=== PATIENT | male | born 1985 | race Caucasian/White ===

== ENCOUNTER 2019-03-05 10:03 | Inpatient (IN) | payer SELFPAY ==
[~2019-03-05] VITALS: Ht 170.2 cm; Wt 82.6 kg
[2019-03-05] VITALS (9 sets, daily range): BP systolic 112–139; BP diastolic 73–100
[~2019-03-05 10:03] MED LIST: CEPH500C PO; HYDR-3720 PO
[2019-03-05 10:28] LABS: BASOPHILS % (AUTO) 0 % (0-10); EOSINOPHILS % (AUTO) 0 % (0-10); HEMATOCRIT 46 % (40-54); HEMOGLOBIN 16.9 G/DL (13.3-17.7); LYMPHOCYTES # (AUTO) 1.6 X 10^3 (1.0-4.0); LYMPHOCYTES % (AUTO) 16 % (12-44); MEAN CORPUSCULAR HEMOGLOBIN 33 PG (25-34); MEAN CORPUSCULAR HGB CONC 37 G/DL (32-36); MEAN CORPUSCULAR VOLUME 90 FL (80-99); MEAN PLATELET VOLUME 10.5 FL (7.4-10.4); MONOCYTES % (AUTO) 21 % (0-12); NEUTROPHILS # (AUTO) 6.2 X 10^3 (1.8-7.8); NEUTROPHILS % (AUTO) 63 % (42-75); PLATELET COUNT 256 10^3/uL (130-400); RED CELL DISTRIBUTION WIDTH 12.5 % (10.0-14.5); WHITE BLOOD COUNT 9.9 10^3/uL (4.3-11.0)
[2019-03-05 10:40] LABS: ALANINE AMINOTRANSFERASE 37 U/L (0-55); ALBUMIN 4.6 GM/DL (3.2-4.5); ALKALINE PHOSPHATASE 74 U/L (40-136); BILIRUBIN,TOTAL 0.6 MG/DL (0.1-1.0); BUN/CREATININE RATIO 11; CALCIUM 9.7 MG/DL (8.5-10.1); CARBON DIOXIDE 23 MMOL/L (21-32); CHLORIDE 104 MMOL/L (98-107); CREATININE SERUM 1.12 MG/DL (0.60-1.30); GFR ESTIMATED > 60; GLUCOSE 111 MG/DL (70-105); POTASSIUM 3.7 MMOL/L (3.6-5.0); SODIUM 136 MMOL/L (135-145); TOTAL PROTEIN 7.7 GM/DL (6.4-8.2)
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
[2019-03-05] MEDS ORDERED: CYCLOBENZAPRINE 10 MG (FLEXERIL) TAB PO SCH (11:00)
[2019-03-05] MEDS ORDERED: KETOROLAC 30 MG/ML VIAL IVP ONE (11:00)
--- NOTE | 2019-03-05 11:09 | Diagnostic Imaging Report ---
INDICATION: Chest pain radiating down both upper extremities. Comparison made with prior examination 09/24/2010. FINDINGS: The heart size, mediastinal configuration, and pulmonary vascularity are within normal limits. There is no pleural effusion, pneumothorax, or pneumonia. The osseous structures are unremarkable. IMPRESSION: No acute cardiopulmonary abnormality. Dictated by: Dictated on workstation # [id number]
--- NOTE | 2019-03-05 12:00 | NUR ---
pt arrives from ed via wheel chair with ed staff. pt placed in room 2 and iv fluids at 125ml/hr started to left ac 20 gauge. pt denies chest pain at this time. vs obtained and pt introduced to room and call light. lung sounds are clear and dc. pt is a pack a day smoker and occasionally smokes pot.
[2019-03-05] MEDS ORDERED: NS IV 1000 ML 1,000 ML ONE ×2 (12:17→17:02)
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
[2019-03-05] MEDS ORDERED: ASPIRIN 325 MG (5 GR) TABLET ONE (12:28)
[2019-03-05] MEDS ORDERED: ASPIRIN 325 MG (5 GR) TABLET PO NR (12:30)
[2019-03-05] MEDS ORDERED: NS IV 1000 ML 1,000 ML IV SCH (12:30)
[2019-03-05] MEDS ORDERED: morphine INJ 10 MG/ML 1ML (SYR OR VIAL) IV PRN (12:30)
[2019-03-05] MEDS ORDERED: CATHETER FLUSH 10 ML SYR IV PRN (12:30)
[2019-03-05] MEDS ORDERED: ONDANSETRON 4 MG/2 ML (SDV) Z0FRAN IV PRN (12:30)
--- NOTE | 2019-03-05 14:01 | History & Physical-Hospitalist ---
History of Present Illness HPI/Chief Complaint CC: Chest pain with elevated troponin HPI: This is a 34yoWM with no PMH who presented to the ER with chest pain. Patient was at work and noted the chest pain that began to worsen so he reported to the ER and found to have elevated troponin with possible pericarditis. Patient was placed in ICU and monitored closely. Patient is much improved since pain med was given in ER. Patient does smoke 1ppd and drinks 2 drinks of ETOH a day. Cardiac cath will be entertained depending on what Dr Gudino thinks should be done. Source: patient, RN/MD Exam Limitations: no limitations Date Seen 03/05/19 Time Seen by a Provider: 13:40 Attending Physician Belinda Perla DO PCP No,Local Physician Referring Physician Date of Admission Mar 05, 2019 at 11:26 Home Medications & Allergies Home Medications Reviewed patient Home Medication Reconciliation performed by pharmacy medication reconciliations finishing lab technician and/or nursing. Patients Allergies have been reviewed. Allergies Allergies Coded Allergies No Known Drug Allergies (Verified03/21/08) Past Ydygdxk-Uocxay-Ubjxdq Hx Past Med/Social Hx: Reviewed Nursing Past Med/Soc Hx, Reviewed and Corrections made Patient Social History Marrital Status: single Employed/Student: employed (service tech/welder) Alcohol Use: Occasionally Uses Recreational Drug Use: Yes Drug of Choice: MARIJUANA Smoking Status: Current Everyday Smoker Type Used: Cigarettes Recent Foreign Travel: No Contact w/other who traveled: No Recent Infectious Disease Expo: No Immunizations Up To Date Tetanus Booster (TDap): Unknown Pediatric: Yes Past Medical History Reproductive: No History of Blood Disorders: No Family History No Pertinent Family Hx Review of Systems Constitutional: see HPI EENTM: no symptoms reported Respiratory: no symptoms reported Cardiovascular: chest pain Gastrointestinal: no symptoms reported Genitourinary: no symptoms reported Musculoskeletal: no symptoms reported Skin: no symptoms reported Psychiatric/Neurological: No Symptoms Reported All Other Systems Reviewed Negative Unless Noted: Yes Physical Exam Physical Exam Vital Signs Vital Signs - First Documented 03/05/19 10:04 Temp 96.4 Pulse 95 Resp 20 B/P (MAP) 157/114 (128) Pulse Ox 99 O2 Delivery Room Air Capillary Refill : Less Than 3 Seconds Height, Weight, BMI Height: 5'7.00" Weight: 185lbs. 0.0oz. 83.209893si; 29.0 BMI Method:Stated General Appearance: No Apparent Distress, WD/WN Eyes: Right Eye Normal Inspection, Right Eye PERRL HEENT: PERRL/EOMI, TMs Normal, Normal ENT Inspection, Pharynx Normal, Moist Mucous Membranes Neck: Full Range of Motion, Normal Inspection, Non Tender Respiratory: Chest Non Tender, Lungs Clear, Normal Breath Sounds, No Accessory Muscle Use, No Respiratory Distress Cardiovascular: Regular Rate, Rhythm, No Edema, No Gallop, No JVD, No Murmur, Normal Peripheral Pulses Gastrointestinal: Normal Bowel Sounds, No Organomegaly, No Pulsatile Mass, Non Tender, Soft Back: Normal Inspection, No CVA Tenderness, No Vertebral Tenderness Extremity: Normal Capillary Refill, Normal Inspection, Normal Range of Motion, Non Tender, No Calf Tenderness, No Pedal Edema Neurologic/Psychiatric: Alert, Oriented x3, No Motor/Sensory Deficits, Normal Mood/Affect Skin: Normal Color, Warm/Dry Lymphatic: No Adenopathy Results Results/Procedures Labs Laboratory Tests 03/05/19 10:10 Patient resulted labs reviewed. Assessment/Plan Admission Diagnosis Assessment: Chest pain Elevated troponin Possible pericarditis Smoker THC use ETOH use Plan: Monitor troponin Appreciate Dr Gudino Admission Status: Inpatient Order (span 2 midnights) Reason for Inpatient Admission: Elevated troponin will require cath and close monitoring Diagnosis/Problems Diagnosis/Problems (1) Chest pain Status: Acute Qualifiers: Chest pain type: unspecified Qualified Codes: R07.9 - Chest pain, unspecified (2) Elevated troponin Status: Acute (3) Smoker Status: Chronic (4) Tetrahydrocannabinol (THC) use disorder, mild, abuse Status: Chronic (5) Alcohol use Status: Chronic (6) Pericarditis Status: Acute Qualifiers: Pericarditis type: infectious Infectious pericarditis etiology: unspecified Chronicity: acute Qualified Codes: I30.1 - Infective pericarditis (7) Myocarditis Status: Acute Qualifiers: Myocarditis type: unspecified Chronicity: acute Qualified Codes: I40.9 - Acute myocarditis, unspecified Clinical Quality Measures AMI/AHF: ASA po Prior to arrival: Yes DVT/VTE Risk/Contraindication: Risk Factor Score Per Nursin RFS Level Per Nursing on Admit: 1=Low/No VTE PPX BELINDA PERLA DO Mar 05, 2019 14:01
[2019-03-05] MEDS ORDERED: MIDAZOLAM 5 MG/5 ML (VERSED) VIAL ONE (17:01)
[2019-03-05] MEDS ORDERED: LIDOCAINE 1% INJ 20 ML 20 ML VIAL ONE (17:01)
--- NOTE | 2019-03-05 17:01 | Cardiac Procedure Note-CS/ASA ---
Pre-Procedure Note Pre-Op Procedure Note H&P Reviewed The H&P was reviewed, patient examined and no changes noted. Date H&P Reviewed: Mar 05, 2019 Time H&P Reviewed: 17:01 Conscious Sedation Pre-Proced Time 17:01 ASA Score 3 For ASA 3 and 4: Consider anesthesia and medical clearance. Also, for patients with a history of failed moderate sedation consider anesthesia. Airway Lungs Heart ASA score ASA 1: a normal healthy patient ASA 2: a patient with a mild systemic disease (mid diabetes, controlled hypertension, obesity x ASA 3: a patient with a severe systemic disease that limits activity (angina , COPD, prior Myocardial infarction) ASA 4: a patient with an incapacitating disease that is a constant threat to life (CHF, renal failure) ASA 5: a moribund patient not expected to survive 24 hrs. (ruptured aneurysm) ASA 6: a declared brain- patient whose organs are being harvested. For emergent operations, add the letter E after the classification Mallampati Classification Grade 3 Sedation Plan Analgesia, Amnesia, Plan communicated to team members, Discussed options with patient/fam, Discussed risks with patient/fam The patient is an appropriate candidate to undergo the planned procedure, sedation, and anesthesia. The patient immediately re-assessed prior to indication. ALEXX HAUSER MD Mar 05, 2019 17:01
[2019-03-05] MEDS ORDERED: fentaNYL INJECTION 100 MCG/2 ML AMP ONE (17:02)
[2019-03-05] MEDS ORDERED: HEParin (CATH LAB) 2,000 ML IV ONE (17:02)
[2019-03-05 17:55] LABS: AMPHETAMINE SCREEN, URINE NEGATIVE (NEGATIVE); BARBITURATE SCREEN URINE NEGATIVE (NEGATIVE); BENZODIAZEPINES SCREEN URINE NEGATIVE (NEGATIVE); CANNABINOID SCREEN, URINE POSITIVE (NEGATIVE); COCAINE SCREEN URINE NEGATIVE (NEGATIVE); METHADONE STAT NEGATIVE (NEGATIVE); METHAMPHETAMINE SCREEN URINE S NEGATIVE (NEGATIVE); OPIATE SCREEN URINE NEGATIVE (NEGATIVE); OXYCODONE STAT NEGATIVE (NEGATIVE); PROPOXYPHENE STAT NEGATIVE (NEGATIVE); TRICYCLIC ANTIDEPRESSANTS SCRE NEGATIVE (NEGATIVE)
--- NOTE | 2019-03-05 17:55 | Cardiac Cath Report ---
Cardiac Cath Report Physician (s)/Head Of Loss Prevention (s) Physician ALEXX HAUSER MD Pre-Procedure Diagnosis Pre-Procedure Diagnosis: chest pain Post-Procedure Note Procedure Start Date: Mar 05, 2019 Name of Procedure: Left heart catheterization Left ventriculogram Aortic arch angiogram Findings/Procedure Note PROCEDURE NOTE: 34 years old gentleman admitted to the emergency room with acute chest pain, had elevated troponin. Started on aspirin, repeat troponin showed rising in the level, had diffuse ST elevation on EKG. Decided to proceed with cardiac catheterization After explaining the procedure to the patient, all pros and cons were explained , all questions were answered. The patient signed the consent and then he was placed on the cardiac catheterization laboratory. Groin was prepped SL fashion local anesthesia was used. Sheath placed in the right femoral artery. Kari right and left catheter were used to access the coronary system. Pigtail was used to access the left ventricular cavity. Left ventriculogram was done, I decided to evaluate aortic arch do to the elevated troponin, discrepancy in the pressure reading compared to the cuff versus the arterial line Aortic arch angiogram was done At the end of the procedure the sheath was removed. Closure device was used FINDINGS: Hemodynamics LV 102/14, end-diastolic pressure of 14 Aorta 101/71 mean of 70 ANATOMY: Left Main is free of obstructive disease Left Anterior Descending has mild disease nonobstructive disease Left Circumflex is large dominant artery with no obstructive disease Right Coronory Artery is small nondominant artery with no obstructive disease LV Gram was done in the right anterior oblique position, left ventricular is normal in size with normal contracted the estimated ejection fraction 50 percent Aorta evaluation done with aortic arch angiogram showing normal aortic arch, no dissection or aneurysm, origin of the great vessels of the neck including the innominate artery left carotid artery and left subclavian arteries were normal CONCLUSION: 1. No significant obstructive disease in the coronary system, dominant circumflex system 2. Normal left ventricular size with preserved systolic function estimated ejection fraction 50 percent 3. Normal aortic arch and great vessels of the neck DISCUSSION AND RECOMMENDATION: Troponin elevation and chest pain could be secondary to thrombus, no sign of obstruction was seen and no sign of occlusion, other causes of elevated troponin could be myocarditis. Anesthesia Type: Conscious Sedation Estimated blood loss (mL): 15 ml Contrast Amount: 75 ml Total Radiation Dose: 357 mGy Post-Procedure Diagnosis Post-operative diagnosis: Chest pain Elevated troponin level ALEXX Roach MD Mar 05, 2019 5:55 pm
[2019-03-05] MEDS ORDERED: PATIENT MAY USE OWN MEDS, ALL PO SCH (18:00)
[2019-03-05] MEDS: NS IV 1000 ML 1,000 ML IV SCH ×2 (18:37→22:30)
[2019-03-06 00:08] VITALS: BP 120/70
[2019-03-06 03:48] LABS: MEAN PLATELET VOLUME 10.5 FL (7.4-10.4); RED CELL DISTRIBUTION WIDTH 12.6 % (10.0-14.5); WHITE BLOOD COUNT 8.5 10^3/uL (4.3-11.0)
[2019-03-06 04:08] LABS: BUN/CREATININE RATIO 12; CALCIUM 8.2 MG/DL (8.5-10.1); CARBON DIOXIDE 18 MMOL/L (21-32); CHLORIDE 109 MMOL/L (98-107); CREATINE KINASE 247 U/L (30-200); CREATININE SERUM 0.85 MG/DL (0.60-1.30); GFR ESTIMATED > 60; GLUCOSE 100 MG/DL (70-105); POTASSIUM 3.7 MMOL/L (3.6-5.0); SODIUM 138 MMOL/L (135-145)
[2019-03-06 08:00] VITALS: BP 136/91
[2019-03-06] MEDS ORDERED: PANTOPRAZOLE 40 MG (PROTONIX) TAB PO SCH (09:00)
[2019-03-06] MEDS ORDERED: ASPIRIN 81 MG CHEW (CHILDREN'S ASA) PO SCH (09:00)
[2019-03-06] MEDS ORDERED: ASPIRIN E.C. 81 MG (ECOTRIN) TAB PO SCH (09:00)
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
[2019-03-06] MEDS ORDERED: ASPI-983 PO (09:53)
--- NOTE | 2019-03-06 09:53 | Discharge Inst-Post CATH ---
Discharge Inst-CATH/EP Post Cardiac Cath/EP D/C Inst Follow Up/Plan Appointment with Dr Gudino's office in 2-4 weeks CARDIAC CATH DISCHARGE INSTRUCTIONS *Hold Metformin for 48 hours post heart cath. ACTIVITY * Go Home directly and rest. * Limit activity of the leg (or wrist if it was used) for 7 days including aerobics, swimming, jogging, bicycling, etc. * Restrict stair-climbing for 7 days if possible, if not, climb up with your non -cath leg, then bring together on the same step. * Avoid lifting, pushing, pulling or excessive movement of the affected extremity for 7 days. * Customary sexual activity may be resumed after 2 days-use caution not to use a position that strains or causes pain to the affected extremity. * No driving for 24 hours. * NO SMOKING. * Avoid straining for bowel movements for 7 days. * Gentle walking on level ground is allowed. * Returning to work will depend on the type of procedure and the results. Your doctor will discuss this with you. CALL YOUR DOCTOR FOR ANY OF THE FOLLOWING: *If bleeding from the puncture site occurs- Apply gentle pressure to site with clean cloth and call your doctor or EMS. * If a knot or lump forms under the skin, increases in size, or causes pain. * If bruising appears to be worsening or moving further down your leg instead of disappearing. * Temperature above 101 F. CARE OF YOUR GROIN INCISION; * Bruising or purple discoloration of the skin near the puncture site is common. * You may shower only, no bathtub bathing for 5 days. Be careful to avoid slipping as your leg may feel stiff. * If a closure device was used on your femoral artery, please see the attached guide regarding care of the device and your leg. * Leave the dressing on, until removed by office staff. CARE OF YOUR WRIST INCISION; * Bruising or purple discoloration of the skin near the puncture site is common. * You may shower. * DO NOT submerge wrist. * Leave dressing on, until removed by office staff.. ALEXX GUDINO MD Mar 06, 2019 09:53
[2019-03-06 10:28] LABS: CHOLESTEROL 127 MG/DL (< 200); HDL CHOLESTEROL 25 MG/DL (40-60); TRIGLYCERIDES 96 MG/DL (<150); VLDL CHOLESTEROL 19 MG/DL (5-40)
--- NOTE | 2019-03-06 13:03 | Discharge Summary-Hospitalist ---
Diagnosis/Chief Complaint Date of Admission Mar 05, 2019 at 11:26 Date of Discharge Mar 06, 2019 at 11:03 Admission Diagnosis Assessment: Chest pain Elevated troponin Possible pericarditis Smoker THC use ETOH use Plan: Monitor troponin Appreciate Dr Gudino Discharge Diagnosis (1) Non-ST elevation [place] (NSTEMI) Status: Acute (2) Chest pain Status: Acute (3) Elevated troponin Status: Acute (4) Smoker Status: Chronic (5) Tetrahydrocannabinol (THC) use disorder, mild, abuse Status: Chronic (6) Alcohol use Status: Chronic (7) S/P cardiac catheterization Status: Acute (8) Hypercoagulable state Status: Acute Discharge Summary Discharge Physical Exam Allergies: Coded Allergies: No Known Drug Allergies (Verified , 03/21/08) Vitals & I&Os Vital Signs Date Time Temp Pulse Resp B/P (MAP) Pulse Ox O2 Delivery O2 Flow Rate FiO2 03/06/19 11:17 03/06/19 08:00 80 22 98 Room Air 03/06/19 08:00 98.8 General Appearance: No Apparent Distress, WD/WN, Chronically ill Respiratory: Chest Non Tender, Lungs Clear, Normal Breath Sounds, No Accessory Muscle Use, No Respiratory Distress Cardiovascular: Regular Rate, Rhythm, No Edema, No Gallop, No JVD, No Murmur, Normal Peripheral Pulses Neurologic/Psychiatric: Alert, Oriented x3, No Motor/Sensory Deficits, Normal Mood/Affect Hospital Course Was the Problem List Reviewed?: Yes Hospital course: Patient was admitted with chest pain and elevated troponin findings possibly due to pericarditis but that was ruled out since troponin became more elevated underwent cardiac catheterization showing nonobstructive coronary vessels and it was theorized that there had been some sort of clot from hypercoagulable state and patient will go home on aspirin smoking cessation and marijuana use will be stopped also. Factor V Leiden was ordered at time of discharge. Non-ST elevation myocardial infarction, cardiac catheterization showed no obstructive disease. Questionable hypercoagulable state. I will evaluate factor V Leiden and continue on aspirin. Educated on avoiding marijuana use due to the fact that it might increase hypercoagulable state. Labs (last 24 hrs) Laboratory Tests 03/05/19 16:05: Troponin I 4.887*H 03/05/19 17:15: Urine Opiates Screen NEGATIVE, Urine Oxycodone Screen NEGATIVE, Urine Methadone Screen NEGATIVE, Urine Propoxyphene Screen NEGATIVE, Urine Barbiturates Screen NEGATIVE, Ur Tricyclic Antidepressants Screen NEGATIVE, Urine Phencyclidine Screen NEGATIVE, Urine Amphetamines Screen NEGATIVE, Urine Methamphetamines Screen NEGATIVE, Urine Benzodiazepines Screen NEGATIVE, Urine Cocaine Screen NEGATIVE, Urine Cannabinoids Screen POSITIVEH 03/05/19 22:01: Troponin I 3.403*H 03/06/19 03:35: Troponin I 2.751*H, White Blood Count 8.5, Red Blood Count 4.27L, Hemoglobin 14.0, Hematocrit 39L, Mean Corpuscular Volume 92, Mean Corpuscular Hemoglobin 33 , Mean Corpuscular Hemoglobin Concent 36, Red Cell Distribution Width 12.6, Platelet Count 234, Mean Platelet Volume 10.5H, Erythrocyte Sedimentation Rate 7 , Sodium Level 138, Potassium Level 3.7, Chloride Level 109H, Carbon Dioxide Level 18L, Anion Gap 11, Blood Urea Nitrogen 10, Creatinine 0.85, Estimat Glomerular Filtration Rate > 60, BUN/Creatinine Ratio 12, Glucose Level 100, Calcium Level 8.2L, Total Creatine Kinase 247H, Myoglobin 28.9 03/06/19 09:55: Triglycerides Level 96, Cholesterol Level 127, LDL Cholesterol Direct 83, VLDL Cholesterol 19, HDL Cholesterol 25L Patient resulted labs reviewed. Pending Labs Laboratory Tests 03/06/19 09:55: Factor V Leiden Mutation [Pending], Factor V Leiden Interpretation [Pending], Triglycerides Level 96, Cholesterol Level 127, LDL Cholesterol Direct 83, VLDL Cholesterol 19, HDL Cholesterol 25 Discussion & Recommendations Discharge Planning: <30 minutes discharge planning Discharge Home Medications: Active Scripts Active Aspirin EC (Aspirin) 81 Mg Tablet. 81 Mg PO DAILY Instructions to patient/family Please see electronic discharge instructions given to patient. Clinical Quality Measures AMI/AHF: ASA po Prior to arrival: Yes DVT/VTE Risk/Contraindication: Risk Factor Score Per Nursin RFS Level Per Nursing on Admit: 1=Low/No VTE PPX Problem Qualifiers (1) Chest pain: Chest pain type: unspecified Qualified Codes: R07.9 - Chest pain, unspecified NORMA WALDROP DO Mar 06, 2019 13:03
== END 2019-03-06 11:03 | disposition home or self-care (01) | DRG 281 ==
LOC: EDUNIT# 10:03 → ER 10:04 → ICU 11:26
PROVIDERS: ADMIT Internal Medicine; ATTEND Internal Medicine
PROC: 4A023N7 Measurement of Cardiac Sampling and Pressure, Left Heart, Percutaneous Approach (ICD-10-PCS; principal; 2019-03-05)
PROC: B2111ZZ Fluoroscopy of Multiple Coronary Arteries using Low Osmolar Contrast (ICD-10-PCS; 2019-03-05)
PROC: B2151ZZ Fluoroscopy of Left Heart using Low Osmolar Contrast (ICD-10-PCS; 2019-03-05)
PROC: B3101ZZ Fluoroscopy of Thoracic Aorta using Low Osmolar Contrast (ICD-10-PCS; 2019-03-05)
DX: I21.4 Non-ST elevation (NSTEMI) myocardial infarction (principal); D68.59 Other primary thrombophilia; I35.0 Nonrheumatic aortic (valve) stenosis; F12.10 Cannabis abuse, uncomplicated; F17.210 Nicotine dependence, cigarettes, uncomplicated; F10.20 Alcohol dependence, uncomplicated
CPT/HCPCS: 36221; 36415; 71045; 80048; 80053; 80061; 80306; 81241; 82550; 83874; 84484; 85025; 85027; 85652; 86141; 93005; 93306; 93458

== ENCOUNTER 2020-08-28 02:46 | Emergency (ER) | payer SELFPAY ==
[~2020-08-28] VITALS: Ht 167 cm; Wt 95.0 kg
[~2020-08-28 02:46] MED LIST changes: +ASPI-1238 PO
[2020-08-28 03:20] LABS: HEMOGLOBIN 17.7 g/dL (13.3-17.7); MEAN PLATELET VOLUME 10.1 fL (9.0-12.2)
[2020-08-28 03:24] LABS: ALBUMIN 4.9 GM/DL (3.2-4.5); CHLORIDE 107 MMOL/L (98-107); POTASSIUM 5.7 MMOL/L (3.6-5.0); SODIUM 138 MMOL/L (135-145)
[2020-08-28 03:26] LABS: GLUCOSE 100 MG/DL (70-105); TOTAL PROTEIN 8.6 GM/DL (6.4-8.2)
[2020-08-28 03:27] LABS: CARBON DIOXIDE 16 MMOL/L (21-32)
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
[2020-08-28 03:28] LABS: BILIRUBIN,TOTAL 0.4 MG/DL (0.1-1.0)
[2020-08-28 03:30] LABS: ALKALINE PHOSPHATASE 71 U/L (40-136); CREATININE SERUM 0.97 MG/DL (0.60-1.30); GFR ESTIMATED > 60
[2020-08-28] MEDS ORDERED: ceFAZolin INJECTION 1,000 MG in WATER (STERILE) FOR INJECTION 10 ML IV ONE (03:30)
[2020-08-28] MEDS ORDERED: LACTATED RINGERS 1,000 ML IV SCH (03:30)
[2020-08-28] MEDS ORDERED: TETANUS,DIPTH,PERTUSS P/F (BOOSTRIX) 0.5 ML VIAL IM ONE (03:30)
[2020-08-28 03:31] LABS: BUN/CREATININE RATIO 11
[2020-08-28 03:32] LABS: BILIRUBIN,DIRECT 0.1 MG/DL (0.0-0.3); BILIRUBIN,INDIRECT 0.3 MG/DL
[2020-08-28 03:33] LABS: ALANINE AMINOTRANSFERASE 43 U/L (0-55)
--- NOTE | 2020-08-28 04:10 | NUR ---
Late entry: Head- pt had an approx 6cm laceration to the frontal scalp at the hairline with a small arterial bleed; Dr. Marroquin sutured this shortly after arrival (see trauma notes) to control bleeding and then stapled the laceration. Face- no obvious signs of injury- face cleansed of dried blood. Neck- no pain with palpation Chest- lungs CTA- equal rise and fall; no obvious signs of injury Pelvis- no pain with palpation Lower extr- abrasion to right knee; legs cleansed of dried blood Upper extr- no obvious signs of injury- arms/hands cleansed of dried blood Back- no obvious signs of injury Patient moves all extremities very well PMS intact x 4.
--- NOTE | 2020-08-28 04:15 | NUR ---
Pt sitting on the side of the bed conversing with PPD; pt unwilling to cooperate with care and just wants to sit on the side of the bed and talk.
--- NOTE | 2020-08-28 05:00 | NUR ---
Pt ready for DC but is sleeping now; will let patient sleep until he is more appropriate to go home.
[2020-08-28] MEDS ORDERED: CYCL10TA9 PO (05:12)
[2020-08-28] MEDS ORDERED: ONDA4TAB11 PO (05:12)
--- NOTE | 2020-08-28 06:21 | NUR ---
Pt remains sleeping; no obvious signs of distress.
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
--- NOTE | 2020-08-28 07:04 | NUR ---
Report to ARACELI Fowler.
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
--- NOTE | 2020-08-28 07:54 | NUR ---
pt sleeping in cot at this time with equal chest rise noted. No apparent distress noted.
[2020-08-28 08:38] VITALS: BP 122/70
== END 2020-08-28 08:53 | disposition home or self-care (01) ==
LOC: EDUNIT# 02:46 → ER 02:49
DX: S06.0X0A Concussion without loss of consciousness, initial encounter (principal); S01.01XA Laceration without foreign body of scalp, initial encounter; R40.2410 Glasgow coma scale score 13-15, unspecified time; F17.210 Nicotine dependence, cigarettes, uncomplicated; Z79.82 Long term (current) use of aspirin; V09.9XXA Pedestrian injured in unspecified transport accident, initial encounter
CPT/HCPCS: 70450; 71260; 72125; 74177; 80048; 80076; 85027; 93041; 99284; G0480; 36415; 80320; 90715

== ENCOUNTER 2022-04-18 18:58 | Emergency (ER) | payer SELFPAY ==
[~2022-04-18] VITALS: Ht 170.1 cm; Wt 95.0 kg
[~2022-04-18 18:58] MED LIST changes: +CYCL10TA25 PO; +ONDA4TAB11 PO
[2022-04-18 19:05] VITALS: BP 166/89
--- NOTE | 2022-04-18 19:56 | Diagnostic Imaging Report ---
INDICATION: Fall from ladder with left wrist pain. EXAMINATION: AP, oblique and lateral views of the left wrist were obtained. FINDINGS: On the lateral view, there appears to be a lucency in the dorsal aspect of the proximal metatarsals, the exact digit cannot be determined due to overlapping of the metacarpals, this is only visualized on the lateral view. Remaining bony structures are intact. There is mild degenerative change of the 1st carpal metacarpal joint and triscaphe joint. IMPRESSION: Lucency in the dorsal aspect of the proximal metacarpals, exact digit cannot be determined since it is only seen on the lateral view. Correlate for point tenderness in this area. There is some mild degenerative change of the 1st carpal metacarpal joint and triscaphe joint. Dictated by: Dictated on workstation # [id number]
--- NOTE | 2022-04-18 19:57 | Diagnostic Imaging Report ---
INDICATION: Fall from ladder with left forearm pain. EXAMINATION: AP and lateral views of the left forearm were obtained. FINDINGS: The radius and ulna are intact with no acute fracture or acute bony abnormality. IMPRESSION: Negative left forearm. Dictated by: Dictated on workstation # [id number]
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
== END 2022-04-18 20:22 | disposition home or self-care (01) ==
LOC: EDUNIT# 18:58 → ER 19:00
DX: S40.022A Contusion of left upper arm, initial encounter (principal); F17.210 Nicotine dependence, cigarettes, uncomplicated; W11.XXXA Fall on and from ladder, initial encounter
CPT/HCPCS: 73090; 73110